=== PATIENT | male | born 1995 | race Asian ===

== ENCOUNTER 2016-06-29 20:43 | Observation (INO) | payer OTHER ==
[2016-06-29] MEDS ORDERED: IOPAMIDOL 370 (76%) 100 ML VIAL IV ONE (20:44)
[2016-06-29] MEDS ORDERED: MORPHINE SULFATE 4 MG/ML SYRINGE ONE (21:24)
[2016-06-29] MEDS ORDERED: ONDANSETRON 4 MG/2ML 2 ML VIAL ONE (21:24)
[2016-06-29] MEDS ORDERED: SODIUM CHLORIDE 0.9% 1,000 ML ONE (21:24)
[2016-06-29] MEDS ORDERED: FAMOTIDINE 10 MG/ML 2ML VIAL ONE (21:25)
[2016-06-29 21:35] LABS: BASO % 0.2 % (0.2-1.0); HEMATOCRIT 42.7 % (32.0-52.0); HEMOGLOBIN 14.7 gm/l (14.0-18.0); IMM NEUT% 0.3 % (0-1); LYMPH # 1.1 (1.0-4.8); LYMPH % 8.7 % (15-45); MEAN CELL VOLUME 82.9 fl (80.0-94.0); MEAN CORPUSCULAR HEMOGLOBIN 28.5 pg (27.0-31.0); MEAN CORPUSCULAR HGB CONC 34.4 g/dl (33.0-37.0); MEAN PLATELET VOLUME 10.4 fl (7.4-10.4); MONO # 0.9 (0.0-0.8); MONO % 7.2 % (4-12); NEUT % 83.6 % (43-75); PLATELET COUNT 257 K/mm3 (130-400); RED CELL DISTRIBUTION WIDTH 12.2 % (11.5-14.5)
[2016-06-29 21:45] LABS: ALB/GLOB RATIO 1.8 (>1.0); ALBUMIN 5.1 gm/dL (3.5-5.7); CALCIUM 9.7 mg/dL (8.6-10.3); MAGNESIUM 1.9 mg/dL (1.9-2.7)
[2016-06-29 22:52] LABS: URINE BILIRUBIN NEGATIVE (NEGATIVE); URINE BLOOD TRACE (NEGATIVE); URINE GLUCOSE (UA) NEGATIVE (NEGATIVE); URINE LEUKOCYTE ESTERASE NEGATIVE (NEGATIVE); URINE NITRITE NEGATIVE (NEGATIVE); URINE PROTEIN TRACE (NEGATIVE); URINE UROBILINOGEN NORMAL (0-1 mg/dl)
[2016-06-29 23:29] LABS: AMPHETAMINES/METHAMPHETAMINES NEGATIVE (NEGATIVE); COCAINE NEGATIVE (NEGATIVE); MARIJUANA NEGATIVE (NEGATIVE); METHADONE NEGATIVE (NEGATIVE); OPIATES POSITIVE (NEGATIVE); TRICYCLIC ANTIDEPRESSANTS NEGATIVE (NEGATIVE)
[2016-06-29 23:31] LABS: URINE APPEARANCE SL CLOUDY; URINE BACTERIA 0; URINE COLOR DARK YELLOW; URINE EPITHELIAL CELLS 0 /hpf; URINE RBC 0-2 /hpf; URINE WBC 0-2 /hpf
[2016-06-29 23:32] LABS: URINE MUCUS 2+
[2016-06-30] MEDS ORDERED: SODIUM CHLORIDE 0.9% 1,000 ML ONE (00:14)
[2016-06-30] MEDS ORDERED: ONDANSETRON 4 MG/2ML 2 ML VIAL IV PRN (01:48)
[2016-06-30] MEDS ORDERED: MORPHINE SULFATE 4 MG/ML SYRINGE IV PRN (01:51)
[2016-06-30 01:57] VITALS: BMI 24.9
[2016-06-30] MEDS ORDERED: BLISTEX LIPSTICK 1 EACH TP PRN ×2 (02:11→02:32)
[2016-06-30] MEDS ORDERED: D5W 1,000 ML IV ONE (02:18)
[2016-06-30] MEDS ORDERED: POTASSIUM CHLORIDE 20MEQ/100ML 100 ML IV ONE (02:20)
[2016-06-30] MEDS ORDERED: MORPHINE SULFATE 2 MG/ML SYRINGE IV PRN (02:22)
[2016-06-30] MEDS ORDERED: PUMP TUBING ONE (02:31)
[2016-06-30] MEDS ORDERED: BISACODYL 5 MG TABLET.EC PO PRN (02:32)
[2016-06-30] MEDS ORDERED: MAGNESIUM HYDROXIDE 30 ML UDCUP PO PRN (02:32)
[2016-06-30] MEDS ORDERED: BISACODYL 10 MG SUP PR PRN (02:32)
[2016-06-30] MEDS ORDERED: SODIUM CHLORIDE 0.9% 100 ML IV PRN (02:32)
[2016-06-30] MEDS ORDERED: MENTHOL/CETYLPYRD 1 EACH LOZENGE PO PRN (02:32)
[2016-06-30] MEDS: PANTOPRAZOLE SODIUM 40 MG VIAL IV SCH (02:54)
[2016-06-30] MEDS: KETOROLAC TROMETHAMINE 15 MG/ML VIAL IV ONE ×2 (02:54→03:00)
[2016-06-30] MEDS ORDERED: POTASSIUM CHLORIDE 20 MEQ in D5W 1,000 ML IV SCH (03:00)
--- NOTE | 2016-06-30 07:17 | HP ---
Robin Causey [id number] DATE OF ADMISSION: 06/30/2016 Patient does not have a local physician. CHIEF COMPLAINT: Abdominal pain. 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 on 06/29/2016. He vomited multiple times, but has not had any diarrhea. No fever, no cough, no respiratory complaints. Pain is now somewhat better. No others have been ill around him. He has been in the [place] for 5 months studying [place] at [employer]. he has not had any dietary intake that would be possibly associated with this. 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 ALLERGIES: He has no known drug allergies. MEDICATIONS: None. SOCIAL HISTORY: Lives with host family, came from [facility]. He does not smoke. No recent alcohol. He has a cat at the host family. He enjoys video games and baseball. FAMILY HISTORY: Father has been healthy. Mom has been healthy. REVIEW OF SYSTEMS: Eyes have been okay. He does use glasses. Ears okay. Nose is okay. Mouth is dry. Teeth are okay. Neck is okay. No respiratory complaints. No heart complaints. No urinary complaints. No skin complaints. Arms and legs have been okay. No history of seizures. PHYSICAL EXAMINATION: GENERAL: Nontoxic male, [place]ian is fairly good for being here five months. VITAL SIGNS: 97.2, blood pressure 125/81, respirations 16, 98% saturation on room air. HEENT: Head is normocephalic, atraumatic. A right sided [employer] EM[employer]EE shunt is felt in the upper right parietal area. Eyes are normal. Ears are normal. Nose is unremarkable. Mouth unremarkable. Teeth are good. NECK: Supple. No rigidity. LUNGS: Clear to auscultation bilaterally. HEART: Regular rate and rhythm without murmur. ABDOMEN: Patient points to infraumbilical area on abdomen as being tender. There is no rebound, no guarding. McBurney's point is unremarkable. GENITOURINARY: Grossly normal male. No inguinal adenopathy. No hernia. EXTREMITIES: Legs and feet are normal. Hands are normal. Perfusion appears good. Capillary refill intact. NEURO: Grossly normal. Speech is clear and as mentioned previously has fairly good [place]ian for only being here five months. LABORATORY: White count 12.0, hemoglobin 14.7, platelets 257, MCV 82.9. Sodium 137, potassium 3.4, chloride 102, CO2 23, BUN 13, creatinine 0.9, glucose 126, magnesium is 1.9, calcium 9.7, bilirubin 1.3, AST 12, ALT 11, alk phos 39, albumin 5.1, globulin 2.8, lipase 7. Urinalysis 3+ ketones, 0-2 red cells, 0-2 white cells, negative leukocyte esterase. Urine drug screen positive for opiates. DIAGNOSTICS: Ultrasound normal gallbladder. 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 Neck films show the shunt evident. Abdomen some dilated loops of bowel including in the left upper quadrant. CT of the abdomen shows some ileus with air fluid levels noted and possible site for a developing obstruction near the end of the shunt. ASSESSMENT AND PLAN: 1. Abdominal pain, vomiting, air fluid levels, dilated loops of bowel noted. Plan intravenous fluids, pain medicines, nausea medicines, and observe. Etiology could be adhesions or other shunt related cause versus viral illness. Will observe and if not improving consider surgical consult. 2. History of ventriculoperitoneal shunt. Patient appears to be functioning. 3. Venous thrombosis prophylaxis. Anticipate mechanical means ambulation. JOB: [id number]
[2016-06-30] MEDS: D5 1/2NS with 40mEq KCL 1,000 ML IV SCH ×3 (08:02→23:35)
--- NOTE | 2016-06-30 08:09 | CT ---
Exam: CT head without contrast COMPARISON: None INDICATION: Headache, vomiting, shunt evaluation. TECHNIQUE: CT examination of the head was obtained without contrast. FINDINGS: There are two right frontal approach ventriculostomy catheters which terminate in the right lateral ventricle towards the midline. The right lateral ventricle is enlarged compared to the left. Assessment for shunt malfunction is limited due to lack of comparisons. 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 There is no acute intracranial hemorrhage. There is no edema, mass effect or midline shift. The visualized paranasal sinuses and mastoid air cells are well aerated. IMPRESSION: Asymmetric enlargement of the right lateral ventricle which is of uncertain chronicity given lack of comparisons; recommend comparison with outside studies to ascertain for change which could reflect shunt malfunction. No acute intracranial abnormality. Congenital findings as above. Preliminary report transmitted to the emergency department from [facility] at 2243 hours 06/29/2016.
--- NOTE | 2016-06-30 08:10 | US ---
Exam: Gallbladder ultrasound COMPARISON: None INDICATION: Right upper quadrant pain and tenderness. FINDINGS: Gallbladder ultrasound was obtained. The gallbladder is normal without stones, sludge or wall thickening. There was a negative sonographic Ling's sign. Common bile duct normal at 3 mm. IMPRESSION: Negative gallbladder ultrasound. Preliminary report transmitted to the emergency department from [facility] at 0246 hours 06/29/2016.
--- NOTE | 2016-06-30 08:19 | CT ---
Exam Type: ABD/PELVIS W/ CON Date and Time: 06/29/2016 10:22 PM Clinical information: Upper abdominal pain with vomiting. Comparison: Plain film examination of the same day. Procedure: Imaging device: [employer] Aquilion [address] scanner 1 mm axial images were obtained through the abdomen and pelvis. Stacked reconstructed 3, 4 and 5 mm images were photographed in the axial coronal and sagittal planes. No oral contrast was utilized for this examination. 100 ml of Isovue-370 was injected intravenously. Exam: with intravenous contrast. FINDINGS: Lung bases:The visualized lung bases appear to be appropriate with no mass, effusion or consolidation visualized. Liver: the liver is homogeneous with no discrete abnormality visualized. No definite findings of biliary dilatation are observed. Spleen: The spleen is homogeneous and does not appear to be enlarged. Gallbladder: Mildly distended. Pancreas: Normal without enlargement or evidence of adjacent inflammatory changes. Adrenal glands: Normal without enlargement or evidence of adjacent inflammatory changes. Abdominal aorta: The aorta is of normal caliber and appears to be without significant atherosclerotic disease. Kidneys: The kidneys appear to be symmetric in size with no perinephric inflammatory changes are identified. No current findings of hydronephrosis are seen. Bowel structures: A few mildly prominent centrally located small bowel loops are identified with no definitive transition to suggest an obstruction. There is what is likely a ventriculoperitoneal shunt with the tip located within the anterior aspect of the pelvis. A small amount of free fluid is seen within the deep pelvis. Appendix: The appendix is well-visualized within the right lower quadrant lateral to the iliopsoas. The appendiceal size is mildly prominent, measuring up to 8 mm in the coronal plane with the suggestion of mild wall enhancement of the base and minimal adjacent inflammatory stranding. Early appendicitis cannot be excluded. Bladder: Mild circumferential wall thickening of the bladder is identified with no focal mass observed. Hernia: No abdominal wall or inguinal hernia is visualized on this examination. Adenopathy: No significant enlarged adenopathy is visualized. Osseous structures: No discrete osseous abnormalities are identified. Pelvic structures: No discrete pelvic abnormalities are visualized in this examination. IMPRESSION: 1. Mildly prominent loops of small bowel within the central abdomen without a definitive transition zone with considerations including an ileus versus early or partial small bowel obstruction. 2. Borderline prominent size of the appendix with the suggestion of mild wall enhancement and subtle adjacent inflammatory stranding. Acute early appendicitis cannot be excluded. 3. An indwelling ventriculoperitoneal shunt with the tip located within the anterior aspect of the pelvis. 4. A small amount of free fluid within the deep pelvis. 5. Mild circumferential wall thickening of the bladder which may be reflective of an underlying component of cystitis. The findings were called to the emergency room at 2344 hours, 06/29/2016, by [facility].
--- NOTE | 2016-06-30 08:20 | RAD ---
Exams: Two-view skull, two-view soft tissue neck, acute abdominal series with PA chest COMPARISON: None INDICATION: Headache, vomiting, shunt evaluation. TECHNIQUE: AP and lateral views of the skull; AP and lateral views of the soft tissues the neck, AP and lateral views of the abdomen and a single AP view of the chest were obtained. FINDINGS: There are 2 right frontal approach catheters, one of which is quite faint and more medially located which is not connected to tubing. Tubing descends along the right side of the head and neck, and along the anterior chest wall to terminate in the pelvis; the catheter is not seen on the lateral view the abdomen due to technique. There is no kinking or disruption of the tubing. Some calcifications are noted about the catheter at the level of the thoracic inlet. Cardiac silhouette is within normal limits. Lungs are clear. There are dilated loops of proximal small bowel which measure up to 5.1 cm. There is no free air under the diaphragm. IMPRESSION: 1. Dilated loops of small bowel, small bowel obstruction cannot be excluded. There is no free intraperitoneal air. 2. The ventriculostomy shunt tubing is unremarkable, without kinking or disruption.
[2016-06-30] MEDS: DOCUSATE SODIUM 100 MG CAPSULE PO SCH ×2 (08:59→23:35)
[2016-07-01] MEDS: PANTOPRAZOLE SODIUM 40 MG VIAL IV SCH (03:34)
[2016-07-01 06:47] LABS: ABSOLUTE NEUTROPHIL COUNT 3.8 K/mm3 (1.8-7.7); BASO % 0.6 % (0.2-1.0); EOS # 0.1 (0.0-0.5); EOS % 0.9 % (0.9-2.9); HEMATOCRIT 40.4 % (32.0-52.0); HEMOGLOBIN 13.2 gm/l (14.0-18.0); IMM NEUT% 0.1 % (0-1); MEAN CELL VOLUME 87.1 fl (80.0-94.0); MEAN CORPUSCULAR HEMOGLOBIN 28.4 pg (27.0-31.0); MEAN CORPUSCULAR HGB CONC 32.7 g/dl (33.0-37.0); MEAN PLATELET VOLUME 10.3 fl (7.4-10.4); MONO # 0.7 (0.0-0.8); MONO % 10.9 % (4-12); NEUT % 57.5 % (43-75); PLATELET COUNT 184 K/mm3 (130-400); RED CELL DISTRIBUTION WIDTH 13.1 % (11.5-14.5)
[2016-07-01 07:07] LABS: ALB/GLOB RATIO 1.5 (>1.0); CALCIUM 8.8 mg/dL (8.6-10.3)
[2016-07-01] MEDS: DOCUSATE SODIUM 100 MG CAPSULE PO SCH (09:51)
--- NOTE | 2016-07-01 12:22 | PDOC43 ---
- Subjective Chief Complaint: abdominal pain. Feeling better today, eating regular foods and bowels have moved. - Objective Vital Signs Temperature 97.4 F 07/01/16 07:48 Pulse Rate 77 07/01/16 07:48 Respiratory Rate 16 07/01/16 07:50 Blood Pressure 117/78 07/01/16 07:48 O2 Saturation by Pulse Oximetry 99 07/01/16 07:48 Oxygen Delivery Method Room Air Oxygen Flow Rate 0 Intake and Output 06/30/16 07/01/16 07/02/16 06:59 06:59 06:59 Intake Total 301 1300 Output Total 2150 200 Balance 301 -850 -200 General: Alert, Oriented x3, Cooperative, No Acute Distress HEENT: Mucous membr. moist/pink Lungs: Clear to Auscultation Bilaterally Cardiovascular: Regular Rate and Rhythm Abdomen: Soft, Normal Bowel Sounds, No Tenderness, No Masses Extremities: No Edema Skin: Normal Color Neurological: Normal Speech Psych/Mental Status: Normal Mood Laboratory 07/01/16 06:15 07/01/16 06:15 07/01/16 06:15 RBC 4.64 L MCHC 32.7 L AST 9 L Alkaline Phosphatase 30 L Current Medications: Current meds reviewed in EMR. - Problems: Assessment/Plan (1) SBO (small bowel obstruction) Status: AcuteAssessment/Plan: Resolved by symptoms and x-ray, discharge home. (2) CERTIFICATION AND SELECTION SPECIALIST (ventriculoperitoneal) shunt status Status: ChronicAssessment/Plan: Stable, no evidence of complications VTE Prophylaxis: not indicated Disposition: discharge home.
--- NOTE | 2016-07-01 13:10 | RAD ---
ABDOMEN 2 VIEWS W PA CHEST COMPARISON: CT abdomen and pelvis, 06/29/2016. Acute abdomen series, 06/29/2016. HISTORY: Small bowel obstruction. FINDINGS: Views: Frontal chest, supine abdomen, upright abdomen. Lungs: Normal. Heart and vessels: Normal. Trachea and bronchi: Normal. Mediastinum and margaret: Normal. Costophrenic sulci: Normal. Chest wall: No change. On the right, ventriculoperitoneal shunt. Pneumoperitoneum: None. The bowel gas pattern: Decreased dilation of the small intestine, maximum diameter 4.3 cm, compared to 5.1 cm 2 days ago. Solid organs: Normal. Calcification: Normal. Bones: Normal. IMPRESSION: Improvement in the bowel gas pattern, with reduction of small bowel dilation, currently 4.3 cm, compared to 5.1 cm 2 days ago. No air-fluid levels.
[2016-07-01 15:12] VITALS: BP 127/80
== END 2016-07-01 18:28 | disposition home or self-care (01) ==
LOC: ED 20:43 → INTOOBSV 06-30 00:50 → MS 06-30 00:50
PROVIDERS: ADMIT Family Medicine; ATTEND Family Medicine
DX: K56.60 Unspecified intestinal obstruction (principal); Z98.2 Presence of cerebrospinal fluid drainage device
CPT/HCPCS: 83690; 85025 ×2; 80305; 80053 ×2; 83735; 81001; 36415; 74022 ×2; 70360; 70250; 74177; 70450; 76705; 96375 ×2; 99285 ×2; 96374; 96361; A9270 ×4; J2270; J3480 ×2; C9113 ×2; J1885; J2405; J7070; J7030 ×2; Q9967